=== PATIENT | female | born 1995 | race African-American/Black ===

== ENCOUNTER 2019-11-08 11:49 | Emergency (ER) | payer OTHER, SELFPAY ==
[2019-11-08 12:30] LABS: Bilirubin Small (Negative); Blood, Urine Trace (Negative); Glucose, Urine (Dipstick) Negative (Negative); Leukocyte Negative (Negative); Nitrite Negative (Negative); Protein, Urine (Dipstick) Negative (Neg-Trace); Urobilinogen 0.2 mg/dL (Less than 2)
[2019-11-08 12:34] LABS: Pregnancy Test - Urine (BHCG) POSITIVE (Negative); Pregu Control Background? CLEAR/WHITE (CLR/WHITE); Pregu Control Bar Appear? YES (CONTROL BAR); Specific Gravity 1.025 (1.002-1.036)
[2019-11-08 12:35] LABS: Clarity Hazy (Clear)
[2019-11-08 12:37] LABS: Bacteria/HPF 2+ HPF (None Seen); RBC/HPF 0-3 HPF (0-3); WBC/HPF 0-3 HPF (0-3)
== END 2019-11-08 13:00 | disposition home or self-care (01) ==
LOC: MADERS 11:49
DX: N89.8 Other specified noninflammatory disorders of vagina (principal); F32.9 Major depressive disorder, single episode, unspecified; J45.909 Unspecified asthma, uncomplicated; Z33.1 Pregnant state, incidental
CPT/HCPCS: 81003; 81015; 81025; 87491; 87591; 99284

== ENCOUNTER 2019-12-21 11:50 | Emergency (ER) | payer MEDICAID, OTHER | END 2019-12-21 12:15 | disposition home or self-care (01) | LOC: MADERS 11:50 | DX: O99.711 Diseases of the skin and subcutaneous tissue complicating pregnancy, first trimester (principal); L50.9 Urticaria, unspecified; O99.341 Other mental disorders complicating pregnancy, first trimester; F32.9 Major depressive disorder, single episode, unspecified; O99.511 Diseases of the respiratory system complicating pregnancy, first trimester; J45.909 Unspecified asthma, uncomplicated; Z3A.11 11 weeks gestation of pregnancy | CPT/HCPCS: 99283 ==